=== PATIENT | male | born 1965 | race African-American/Black ===

== ENCOUNTER 2019-06-11 21:23 | Emergency (ER) | payer SELFPAY ==
--- NOTE | 2019-06-11 22:07 | ED Physician Documentation ---
PD HPI BACK PAIN - Stated complaint Stated Complaint: BK PX/NK PX - Chief complaint Chief Complaint: Ext Problem - History obtained from History obtained from: Patient - History of Present Illness Timing - onset: How many days ago (8) Timing - duration: Days (8) Timing - details: Abrupt onset Pain level now: 10 Quality: Pain Associated symptoms: No: Weakness, Numbness, Incontinent of urine Improves with: Nothing Worsened by: Movement Contributing factors: Trauma Similar symptoms before: Has not had sx before Recently seen: Not recently seen - Additional information Additional information: This is a 54-year-old man who says he was walking through [employer] 8 days ago when he got ran into by a stocking cart knocked him down onto his right knee and then he fell backwards onto his back and hit his head. He says the stocking cart pinned him against the shelf. He is continued to have pain at a 10 out of 10 in the right knee the lower back in the right neck and shoulder. He is been using Biofreeze and also taking tylenol without relief of his pain. He did not hit his head or pass out. Denies prior back injury or pain. Denies numbness or tingling into the arms or legs and has had no urinary notes. He was not evaluated after the initial injury but had to miss a day of work this week and is here now to be seen. He is an control equipment electrician. He says he cannot take ibuprofen or naproxen because it makes his stomach upset. Review of Systems : denies: Incontinent Musculoskeletal: reports: Neck pain, Back pain, Joint pain, Joint swelling Neurologic: denies: Numbness, Head injury, LOC PD PAST MEDICAL HISTORY - Past Medical History Past Medical History: Yes Cardiovascular: None Respiratory: None Neuro: None Endocrine/Autoimmune: Type 1 diabetes GI: None : None HEENT: None Psych: None Musculoskeletal: None Derm: None - Past Surgical History Past Surgical History: Yes Ortho: Other - Present Medications Home Medications: Ambulatory Orders Medication Instructions Recorded Confirmed Hydrocodone/Acetaminophen 1 - 2 each PO Q6H PRN #6 tablet 06/11/19 [Hydrocodon-Acetaminophen 5-325] - Allergies Allergies/Adverse Reactions: Allergies Allergy/AdvReac Type Severity Reaction Status Date / Time No Known Drug Allergies Allergy Verified 06/11/19 23:30 - Social History Does the pt smoke?: Yes Smoking Status: Current every day smoker Does the pt drink ETOH?: Yes Does the pt have substance abuse?: No - Immunizations Immunizations are current?: No - POLST Patient has POLST: No PD ED PE NORMAL - Vitals Vital signs reviewed: Yes - General General: Alert and oriented X 3 - HEENT HEENT: Atraumatic, PERRL - Neck Neck: Supple, no meningeal sign - Respiratory Respiratory: No respiratory distress - Back Back: Other (No midline tenderness in the cervical spine. There is some tenderness through the right trapezius muscle. There is some midline lower lumbar tenderness. No bruising or swelling is noted.) - Derm Derm: Normal color, Warm and dry - Extremities Extremities: No deformity, Other (No obvious swelling or effusion to the right knee. Is free range of motion in the knee.) - Neuro Neuro: Other (Sensation is intact to the lower extremities bilaterally reflexes are 1+ and symmetrical at the quadriceps. He is able to ambulate without weakness or foot drop. 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 He said ibuprofen and naproxen make his stomach hurt in a trial 10 mg of Toradol p.o. I did not feel that x-rays were warranted on the cervical spine or the right knee however have ordered lumbar spine imaging. Results were discussed with the patient and his family. He has not yet received the Toradol p.o. I am going to give him 2 hydrocodone tablets tonight and a prescription for just 6 tablets. He will be referred to outpatient follow-up. Departure - Departure Disposition: 01 Home, Self Care Clinical Impression: Knee pain, right Qualifiers: Chronicity: acute Qualified Code(s): M25.561 - Pain in right knee Strain, cervical Qualifiers: Encounter type: initial encounter Qualified Code(s): S16.1XXA - Strain of muscle, fascia and tendon at neck level, initial encounter Strain of lumbar spine Qualifiers: Encounter type: initial encounter Qualified Code(s): S39.012A - Strain of muscle, fascia and tendon of lower back, initial encounter Condition: Good Instructions: Exercises Back Lower Back Stretch, ED Low Back Pain Injury, ED Sprain Strain Lumbar, NARCOTIC, Oral Follow-Up: [facility] [Provider Group] Prescriptions: Hydrocodone/Acetaminophen [Hydrocodon-Acetaminophen 5-325] 1 - 2 each PO Q6H PRN #6 tablet PRN Reason: pain Comments: Ice the lower back. Stretching exercises as provided...Take the hydrocodone at night to help you sleep if needed. He should follow-up with primary care provider next week if your pain is not improving. Discharge Date/Time: 06/11/19 23:43
[2019-06-11] MEDS ORDERED: KETOROLAC 10 MG TABLET PO SCH (22:35)
--- NOTE | 2019-06-11 23:01 | XRAY Report ---
Reason: pain Procedure Date: 06/11/2019 Accession Number: [id number] / [id number] Procedure: XR - Lumbar Spine 2 View CPT Code: FULL RESULT: EXAM: LUMBOSACRAL SPINE RADIOGRAPHY EXAM DATE: 06/11/2019 10:47 PM. CLINICAL HISTORY: Pain after injury. COMPARISONS: None. TECHNIQUE: 2 views. FINDINGS: Alignment: Minimal dextroconvex lumbar curvature. There may be a few mm degenerative spondylolisthesis at L5-S1. Bones: Five [id number] lumbar vertebral bodies are present. No fractures or bone lesions. Disks: Mild to moderate degenerative disk disease at L4-L5. Mild degenerative disk disease at L5-S1. Facets: Degenerative joint disease in the lower lumbar facet joints. Sacroiliac Joints: Grossly unremarkable. Soft Tissues: The visualized bowel gas pattern is normal. IMPRESSION: 1. Degenerative changes. No acute abnormality seen. [facility]
[2019-06-11] MEDS ORDERED: HYDROcod/ACETAM 5/325 MG TABLET PO STA (23:29)
[2019-06-11 23:42] VITALS: BP 116/81
== END 2019-06-11 23:43 | disposition home or self-care (01) ==
LOC: ED 21:23
DX: M25.561 Pain in right knee (principal); S16.1XXA Strain of muscle, fascia and tendon at neck level, initial encounter; S39.012A Strain of muscle, fascia and tendon of lower back, initial encounter; W18.09XA Striking against other object with subsequent fall, initial encounter; Y93.01 Activity, walking, marching and hiking; Y92.512 Supermarket, store or market as the place of occurrence of the external cause; E10.9 Type 1 diabetes mellitus without complications; F17.200 Nicotine dependence, unspecified, uncomplicated
CPT/HCPCS: 72100; 99283; 99284; A9270

== ENCOUNTER 2019-09-15 12:06 | Outpatient (CLI) | payer OTHER ==
--- NOTE | 2019-09-15 15:23 | MRI Report ---
Reason: PAIN IN RT SHOULDER Procedure Date: 09/15/2019 Accession Number: [id number] / [id number] Procedure: MRI - Shoulder RT W/O CPT Code: Final Report FULL RESULT: EXAM: RIGHT SHOULDER MRI WITHOUT CONTRAST EXAM DATE: 09/15/2019 01:28 PM. CLINICAL HISTORY: Pain in right shoulder. COMPARISON: None. TECHNIQUE: Multiplanar, multisequence T1-weighted and fluid-sensitive sequences of the shoulder without contrast. Other: None. FINDINGS: Acromioclavicular Region: The acromion is type II. Mild osteoarthritis acromioclavicular joint. Subcortical cystic changes distal clavicle and acromium at the AC joint. There is marrow edema distal clavicle negative for increased fluid AC joint. The coracoacromial and coracoclavicular ligaments are intact. No subacromial/subdeltoid bursal fluid. Glenohumeral Region: No subluxation. No effusion or loose bodies. Mild chondromalacia glenoid. The glenohumeral ligaments and joint capsule are unremarkable. Bone Marrow: No fracture, marrow edema or bone lesions. Labrum: Altered morphology diminutive anterior superior glenoid labrum (CT image 20 series 401). Probable displaced anterior labrum tear mid anterior glenoid labrum (image 17 series 401). Musculature/Rotator Cuff: Focal 1 cm in length fluid collection infraspinatus musculotendinous junction. Linear fluid signal partial undersurface tear supraspinatus-infraspinatus interval 7 mm in length and maximum 2 mm thickness (image 19 series 701 and image 11 series 501). Possible small linear interstitial tear 8 mm in length inferior aspect subscapularis tendon. Fluid signal partial tear superior aspect subscapularis tendon 2 mm in thickness and 6.4 mm in height (CT image 15 series 701). Rotator cuff muscles negative for edema or atrophy. Subscapularis tendinosis. Biceps Tendon: Biceps tendon is intact. Proximal intra-articular biceps tendinosis. Low position of the biceps tendon superior aspect subscapularis tendon at the level of the lesser tuberosity consistent with biceps ebony lesion. Other: The subcutaneous tissues are unremarkable. IMPRESSION: 1. Negative for complete rotator cuff tear. 2. Fluid signal partial tear superior aspect subscapularis tendon 2 mm in thickness and 6.4 mm in height. 3. Linear fluid signal partial undersurface undersurface tear supraspinatus-infraspinatus interval region 7 mm in length and 2 mm in maximum thickness. 4. Probable anterior superior and anterior mid glenoid labrum tear. 5. Probable biceps ebony lesion. 6. Mild notch arthritis acromioclavicular joint with subcortical cystic changes and there is marrow edema distal clavicle. RADIA
== END 2019-09-15 12:07 | disposition home or self-care (01) ==
LOC: DI 12:06
PROVIDERS: ATTEND Orthopaedic Surgery Sports Medicine
DX: M75.101 Unspecified rotator cuff tear or rupture of right shoulder, not specified as traumatic (principal); M19.011 Primary osteoarthritis, right shoulder